=== PATIENT | male | born 1990 | race Caucasian/White ===

== ENCOUNTER 2018-04-22 04:06 | Emergency (ER) ==
[2018-04-22 04:17] VITALS: BMI 23.6
[2018-04-22] MEDS ORDERED: ROCEPHIN IV STA (04:34)
[2018-04-22] MEDS ORDERED: LIDOCAINE HCL 1% SDV IM STA (04:34)
--- NOTE | 2018-04-22 04:34 | ED.PDOC ---
General ED Provider: Dr. NATALYA MAJOR Chief Complaint: Hand Pain/Injury Stated Complaint: Patient is a 27 year old malehe who comes to the ER with complaints of right hand swelling after he poped a pimple. Also states that it is red. rates the pain as 8/10 Time Seen by Physician: 04:20 Mode of Arrival: Walk-In Information Source: Patient Exam Limitations: No limitations Nursing and Triage Documentation Reviewed and Agree: Yes Does patient meet sepsis criteria?: No System Inflammatory Response Syndrome: Not Applicable Sepsis Protocol: For patient's 13 years and over: Temp is 96.8 and below OR 101 and greater Pulse >90 BPM Resp >20/minute Acutely Altered Mental Status Are patient's symptoms suggestive of a new infection, such as: -Pneumonia -Skin, Soft Tissue -Endocarditis -UTI -Bone, Joint Infection -Implantable Device -Acute Abdominal Infection -Wound Infection -Meningitis -Blood Stream Catheter Infection -Unknown Review of Systems - Review Of Systems Constitutional: Reports: No symptoms Eyes: Reports: No symptoms Ears, Nose, Mouth, Throat: Reports: No symptoms Respiratory: Reports: No symptoms Cardiac: Reports: No symptoms GI: Reports: No symptoms : Reports: No symptoms Musculoskeletal: Reports: No symptoms Skin: Reports: Rash (redness on the right dosum of hand ) Neurological: Reports: Anxiety Endocrine: Reports: No symptoms Hematologic/Lymphatic: Reports: No symptoms All Other Systems: Reviewed and Negative Past Medical History - Past Medical History Previously Healthy: Yes Endocrine: Reports: None Cardiovascular: Reports: None Respiratory: Reports: None Hematological: Reports: None Gastrointestinal: Reports: None Genitourinary: Reports: None Neuro/Psych: Reports: None Musculoskeletal: Reports: None Cancer: Reports: None - Surgical History General Surgical History: Reports: None - Family History Family History: Reports: None - Social History Smoking Status: Current every day smoker, Light tobacco smoker Hx Substance Use: No Alcohol Screening: None - Immunizations Tetanus Shot up to Date: (UNKNOWN) Physical Exam - Physical Exam Appearance: Ill-appearing Ill-appearing: Mild Pain Distress: Moderate Neck: Supple Respiratory: Airway patent, Breath sounds clear, Breath sounds equal, Respirations nonlabored Cardiovascular: No rub, Tachycardia GI/: Soft, Nontender, No masses Musculoskeletal: Limited ROM (Difficulty making a fist ), Edema (right hand ) Skin: Warm, Dry Neurological: Sensation intact Psychiatric: Anxious Critical Care Note - Critical Care Note Total Time (mins): 0 Course - Course Hematology/Chemistry: 04/22/18 04:45 04/22/18 04:45 Orders, Labs, Meds: Lab Review 04/22/18 04/22/18 04/22/18 04:45 04:45 04:45 WBC 15.60 H RBC 4.75 Hgb 14.1 Hct 39.9 L MCV 84.0 MCH 29.7 MCHC 35.3 RDW Coeff of Melquiades 12.3 Plt Count 217 Immature Gran % (Auto) 0.3 Neut % (Auto) 69.1 Lymph % (Auto) 18.0 [place] % (Auto) 9.8 Eos % (Auto) 2.2 Baso % (Auto) 0.6 Immature Gran # (Auto) 0.0 Neut # (Auto) 10.8 H Lymph # (Auto) 2.8 [place] # (Auto) 1.5 Eos # (Auto) 0.3 Baso # (Auto) 0.1 Sodium 136.8 L Potassium 3.76 Chloride 100.2 Carbon Dioxide 30.5 H Anion Gap 9.86 BUN 16.1 Creatinine 1.08 Estimated GFR (MDRD) 83.00 BUN/Creatinine Ratio 14.90 Glucose 113.0 H Lactic Acid Calcium 9.37 Total Bilirubin 0.56 AST 32.3 ALT 17.7 Alkaline Phosphatase 56.6 Total Protein 7.27 Albumin 4.53 Globulin 2.74 Albumin/Globulin Ratio 1.65 Procalcitonin < 0.05 04/22/18 04:45 WBC RBC Hgb Hct MCV MCH MCHC RDW Coeff of Melquiades Plt Count Immature Gran % (Auto) Neut % (Auto) Lymph % (Auto) [place] % (Auto) Eos % (Auto) Baso % (Auto) Immature Gran # (Auto) Neut # (Auto) Lymph # (Auto) [place] # (Auto) Eos # (Auto) Baso # (Auto) Sodium Potassium Chloride Carbon Dioxide Anion Gap BUN Creatinine Estimated GFR (MDRD) BUN/Creatinine Ratio Glucose Lactic Acid 0.73 Calcium Total Bilirubin AST ALT Alkaline Phosphatase Total Protein Albumin Globulin Albumin/Globulin Ratio Procalcitonin Orders Category Date Time Status ED APPLY O2 .ONCE EMERGENCY 04/22/18 04:34 Active ED BOOKKEEPING MANAGER APPLIED .ONCE EMERGENCY 04/22/18 04:34 Active ED IV/MEDIPORT/POWERPORT .ONCE EMERGENCY 04/22/18 04:34 Active ED VITAL SIGNS Q1HR EMERGENCY 04/22/18 04:34 Active BLOOD CULTURE (ED ONLY) Stat LAB 04/22/18 04:45 Received CBC W/ AUTO DIFF Stat LAB 04/22/18 04:45 Completed COMPREHENSIVE METABOLIC PANEL Stat LAB 04/22/18 04:45 Completed LACTIC ACID Stat LAB 04/22/18 04:45 Completed PROCALCITONIN Stat LAB 04/22/18 04:45 Completed 0.9 % Sodium Chloride [Saline Flush] MEDS 04/22/18 04:34 Ordered 1 syr IVF PRN PRN Ceftriaxone Sodium [Rocephin] MEDS 04/22/18 04:34 Discontinued 1 gm IV ONCE STA Ketorolac Tromethamine [Toradol] MEDS 04/22/18 04:37 Discontinued 30 mg IVP ONCE STA Medications Generic Name Dose Route Start Last Admin Trade Name Freq PRN Reason Stop Dose Admin Sodium Chloride 1 syr 04/22/18 04:34 04/22/18 05:03 Saline Flush IVF 1 syr PRN PRN Administration To flush IV Discontinued Medications Generic Name Dose Route Start Last Admin Trade Name Freq PRN Reason Stop Dose Admin Ceftriaxone Sodium 1 gm 04/22/18 04:34 04/22/18 05:04 Rocephin IV 04/22/18 04:35 1 gm ONCE STA Administration Ketorolac Tromethamine 30 mg 04/22/18 04:37 04/22/18 05:02 Toradol IVP 04/22/18 04:38 30 mg ONCE STA Administration Vital Signs: Temp Pulse Resp BP Pulse Ox 04/22/18 05:55 99.2 F 87 16 104/67 97 04/22/18 04:08 99.6 F 110 H 20 142/84 H 96 Departure - Departure Time of Disposition: 06:11 Disposition: HOME SELF-CARE Discharge Problem: Cellulitis of hand excluding fingers Instructions: Cellulitis (ED) Condition: Stable Pt referred to PMD for follow-up: Yes IPMP verified?: No Additional Instructions: Take antibiotics as prescribed Follow up with PCP iin 2 days Prescriptions: Cephalexin [Keflex] 500 mg PO Q8HR #30 capsule Ibuprofen [Motrin] 600 mg PO Q6H PRN #30 tablet PRN Reason: Analgesia Allergies/Adverse Reactions: Allergies No Known Drug Allergies Adverse Reaction (Verified 04/22/18 04:18) Home Medications: Ambulatory Orders Cephalexin [Keflex] 500 mg PO Q8HR #30 capsule 04/22/18 Ibuprofen [Motrin] 600 mg PO Q6H PRN #30 tablet 04/22/18 Transfer Form Completed: Yes Disposition Discussed With: Patient, Family
[2018-04-22] MEDS ORDERED: TORADOL IVP STA (04:37)
[2018-04-22 05:56] VITALS: BP 104/67; TEMP 99.2
== END 2018-04-22 06:20 | disposition home or self-care (01) ==
LOC: ED 04:06
DX: L03.113 Cellulitis of right upper limb (principal); F17.210 Nicotine dependence, cigarettes, uncomplicated
CPT/HCPCS: 36415; 80053; 83605; 84145; 85025; 87040; 96365; 96375; 99283